=== PATIENT | male | born 1975 ===

== ENCOUNTER 2016-08-07 10:04 | Emergency (ER) | payer OTHER ==
[2016-08-07 10:11] VITALS: RESP 18
--- NOTE | 2016-08-07 11:02 | C.PDOC ---
History Of Present Illness 41 y/o male with Hx of Gout presents to ED with complaints of right foot pain since this morning. Patient states the symptoms are similar to previous relating to Gout. Patient reports taking Tylenol today with no relief. Patient denies fever, numbness, weakness or any other complaints at this time. Time Seen by Provider: 08/07/16 10:23 Chief Complaint (Nursing): Lower Extremity Problem/Injury History Per: Patient History/Exam Limitations: no limitations Onset/Duration Of Symptoms: Days Past Medical History Reviewed: Historical Data, Nursing Documentation, Vital Signs Vital Signs: Last Vital Signs Temp 97.7 F 08/07/16 11:30 Pulse 58 L 08/07/16 11:30 Resp 18 08/07/16 11:30 BP 108/65 08/07/16 11:30 Pulse Ox 96 08/07/16 11:30 Family History: States: No Known Family Hx - Social History Hx Alcohol Use: Yes Hx Substance Use: No - Immunization History Hx Tetanus Toxoid Vaccination: No Hx Influenza Vaccination: No Hx Pneumococcal Vaccination: No Review Of Systems Except As Marked, All Systems Reviewed And Found Negative. Constitutional: Negative for: Fever, Chills Musculoskeletal: Positive for: Foot Pain Skin: Negative for: Rash Neurological: Negative for: Weakness, Numbness Physical Exam - Physical Exam Appears: No Acute Distress Skin: Warm, No Dry Head: Atraumatic, Normacephalic Extremity: Tenderness (right liner reroll tender to palpations at dorsum and plantar aspect of medial foot), No Deformity, Swelling (Mild right foot swelling), Other (Right foot warm to touch, mild erythema) Neurological/Psych: Oriented x3, Normal Motor, Normal Sensation, Normal Reflexes ED Course And Treatment O2 Sat by Pulse Oximetry: 99 (RA) Pulse Ox Interpretation: Normal Medical Decision Making Medical Decision Making: Patient symptoms are likely to be Gout Patient is treated with pain medication at ED and discharged home with additional medication and advised to follow up with PMD. Disposition Counseled Patient/Family Regarding: Diagnosis, Need For Followup, Rx Given - Disposition Referrals: [facility] [Outside] Disposition: HOME/ ROUTINE Disposition Time: 11:10 Condition: STABLE Additional Instructions: SEGUIMIENTO CON LOPEZ DOCTOR / CLNICA EN 1-2 YANEZ USE MEDICAMENTOS SEGN LO DIRIGIDO DEVUELVA A LA DEDE DE EMERGENCIA SI LOS SNTOMAS EMPEORARAN Prescriptions: Colchicine 0.6 mg PO DAILY #7 capsule Indomethacin [Indocin] 50 mg PO TID PRN #21 cap PRN Reason: PAIN Instructions: Gout (ED) Print Language: ROMANIAN - POA Present On Arrival: None - Clinical Impression Clinical Impression: Gout attack, Right foot pain - Scribe Statement The provider has reviewed the documentation as recorded by the Chiquita Carpio All medical record entries made by the Chiquita were at my direction and personally dictated by me. I have reviewed the chart and agree that the record accurately reflects my personal performance of the history, physical exam, medical decision making, and the department course for this patient. I have also personally directed, reviewed, and agree with the discharge instructions and disposition.
[2016-08-07 11:31] VITALS: BP 108/65; PULSE 58; TEMP 97.7
[2016-08-07 11:57] VITALS: O2SAT 99
== END 2016-08-07 11:38 | disposition home or self-care (01) ==
LOC: C.ER 10:04
DX: M10.9 Gout, unspecified (principal)
CPT/HCPCS: 96372; 99284; J1885